=== PATIENT | male | born 1950 | race Caucasian/White ===

== ENCOUNTER → 2019-02-03 | Outpatient (CLI) | payer OTHER | LOC: C.LAB 10:41 | DX: E11.8 Type 2 diabetes mellitus with unspecified complications (principal); Z68.20 Body mass index [BMI] 20.0-20.9, adult ==

== ENCOUNTER 2019-02-09 10:25 | Outpatient (CLI) | payer OTHER | END 2019-02-09 10:26 | disposition home or self-care (01) | LOC: C.LAB 10:25 | DX: Z12.11 Encounter for screening for malignant neoplasm of colon (principal) ==